=== PATIENT | female | born 1970 | race Caucasian/White ===

== ENCOUNTER 2017-10-20 05:50 | Emergency (ER) | payer OTHER ==
[2017-10-20 06:51] LABS: ADD MAN DIFF? NO
[2017-10-20 06:55] LABS: WHITE BLOOD COUNT 7.6 10^3/ul (4.8-10.8)
[2017-10-20 06:55] LABS: BASOPHIL # 0.1 10^3/ul (0.0-0.1); BASOPHILS % 0.7 % (0.0-2.0); EOSINOPHILS # 0.6 10^3/ul (0.0-0.5); EOSINOPHILS % 7.5 % (0.0-7.0); HEMOGLOBIN 13.5 g/dl (12.0-16.0); LYMPHOCYTES # 2.4 10^3/ul (0.8-2.9); LYMPHOCYTES % 31.8 % (15.0-51.0); MEAN CORPUSCULAR HEMOGLOBIN 28.4 pg (29.0-33.0); MEAN CORPUSCULAR HGB CONC 32.9 g/dl (32.0-37.0); MEAN CORPUSCULAR VOLUME 86.1 fl (82.0-101.0); MEAN PLATELET VOLUME 11.5 fl (7.4-10.4); MONOCYTE # 0.5 10^3/ul (0.3-0.9); MONOCYTES % 6.8 % (0.0-11.0); NEUTROPHILS % 52.8 % (39.0-77.0); PLATELET COUNT 244 10^3/UL (140-415); RED BLOOD COUNT 4.76 10^6/ul (4.20-5.40); RED CELL DISTRIBUTION WIDTH 11.9 % (11.5-14.5)
[2017-10-20] MEDS: ALBUTEROL 0.083% (NEB) 2.5 MG/3 ML AMP NEB (07:05)
[2017-10-20] MEDS: IPRATROPIUM (NEB) 0.5 MG/2.5 ML AMP NEB (07:06)
[2017-10-20 07:17] LABS: ANION GAP 13 (8-16); BLOOD UREA NITROGEN 14 mg/dl (7-20); CALCIUM 9.7 mg/dl (8.4-10.2); CARBON DIOXIDE 28 mmol/L (21-31); CHLORIDE 103 mmol/L (97-110); CREATININE 0.92 mg/dl (0.44-1.00); GLUCOSE 98 mg/dl (70-220); POTASSIUM 4.2 mmol/L (3.5-5.1); SODIUM 140 mmol/L (135-144)
[2017-10-20 07:33] LABS: TROPONIN-I < 0.012 ng/ml (0.00-0.12)
[2017-10-20] MEDS: KETOROLAC 30 MG INJ IV (08:02)
== END 2017-10-20 08:16 | disposition home or self-care (01) ==
LOC: E/R 05:50
DX: J45.901 Unspecified asthma with (acute) exacerbation (principal); J20.9 Acute bronchitis, unspecified; R05 Cough
CPT/HCPCS: 36415; 71045; 80048; 84484; 85025; 93005; 94664; 96374; 99285-25

== ENCOUNTER 2017-11-02 22:46 | Emergency (ER) | payer OTHER | END 2017-11-03 01:50 | disposition home or self-care (01) | LOC: FTE 22:46 | DX: J20.9 Acute bronchitis, unspecified (principal); J45.909 Unspecified asthma, uncomplicated | CPT/HCPCS: 99284; Z7502 ==

== ENCOUNTER 2018-05-29 04:30 | Inpatient (IN) | payer OTHER ==
[2018-05-29] MEDS: SOD CHLORIDE 0.9% 500 ML IV (05:31)
[2018-05-29] MEDS: ONDANSETRON 4 MG INJ IV ×3 (05:31→10:05)
[2018-05-29 05:44] LABS: ADD MAN DIFF? NO
[2018-05-29] MEDS: LIDOCAINE/MYLANTA 40 ML BTL PO (05:47)
[2018-05-29 05:55] LABS: ALANINE AMINOTRANSFERASE 32 IU/L (13-69); ALBUMIN 3.9 g/dl (3.3-4.9); ALBUMIN/GLOBULIN RATIO 1.11; ALKALINE PHOSPHATASE 81 IU/L (42-121); ANION GAP 11 (8-16); ASPARTATE AMINO TRANSFERASE 60 IU/L (15-46); BILIRUBIN,INDIRECT 0.3 mg/dl (0-1.1); BILIRUBIN,TOTAL 0.3 mg/dl (0.2-1.3); BLOOD UREA NITROGEN 14 mg/dl (7-20); CALCIUM 9.2 mg/dl (8.4-10.2); CARBON DIOXIDE 28 mmol/L (21-31); CHLORIDE 106 mmol/L (97-110); CREATININE 0.97 mg/dl (0.44-1.00); GLUCOSE 97 mg/dl (70-220); LIPASE 136 U/L (23-300); POTASSIUM 4.1 mmol/L (3.5-5.1); SODIUM 141 mmol/L (135-144); TOTAL PROTEIN 7.4 g/dl (6.1-8.1)
[2018-05-29 06:05] LABS: BASOPHILS % 0.4 % (0.0-2.0); EOSINOPHILS # 0.2 10^3/ul (0.0-0.5); EOSINOPHILS % 2.3 % (0.0-7.0); HEMATOCRIT 41.1 % (37.0-47.0); HEMOGLOBIN 13.8 g/dl (12.0-16.0); LYMPHOCYTES # 4.1 10^3/ul (0.8-2.9); LYMPHOCYTES % 42.2 % (15.0-51.0); MEAN CORPUSCULAR HEMOGLOBIN 29.2 pg (29.0-33.0); MEAN CORPUSCULAR HGB CONC 33.6 g/dl (32.0-37.0); MEAN CORPUSCULAR VOLUME 86.9 fl (82.0-101.0); MEAN PLATELET VOLUME 11.9 fl (7.4-10.4); MONOCYTE # 0.8 10^3/ul (0.3-0.9); MONOCYTES % 7.8 % (0.0-11.0); NEUTROPHIL # 4.5 10^3/ul (1.6-7.5); PLATELET COUNT 202 10^3/UL (140-415); RED BLOOD COUNT 4.73 10^6/ul (4.20-5.40); RED CELL DISTRIBUTION WIDTH 12.2 % (11.5-14.5)
[2018-05-29 06:05] LABS: WHITE BLOOD COUNT 9.6 10^3/ul (4.8-10.8)
[2018-05-29 06:06] LABS: ADD UMIC YES; TROPONIN-I < 0.012 ng/ml (0.000-0.120); UR ASCORBIC ACID NEGATIVE (NEGATIVE); UR BACTERIA FEW /HPF (NONE SEEN); UR BILIRUBIN (Dip) NEGATIVE (NEGATIVE); UR BLOOD (Dip) 2+ mg/dL (NEGATIVE); UR CLARITY CLOUDY (CLEAR); UR COLOR YELLOW (YELLOW); UR GLUCOSE (Dip) NEGATIVE (NEGATIVE); UR KETONES (Dip) NEGATIVE (NEGATIVE); UR LEUKOCYTE ESTERASE (Dip) NEGATIVE Leu/ul (NEGATIVE); UR MUCUS FEW /HPF (NONE SEEN); UR NITRITE (Dip) NEGATIVE (NEGATIVE); UR RBC 2 /HPF (0-5); UR SPECIFIC GRAVITY (Dip) 1.019 (1.003-1.030); UR SQUAMOUS EPITHELIAL CELL MODERATE /HPF (FEW); UR TOTAL PROTEIN (Dip) NEGATIVE (NEGATIVE); UR UROBILINOGEN (Dip) NEGATIVE (NEGATIVE); UR WBC 5 /HPF (0-5)
[2018-05-29] MEDS: HYDROmorphONE 0.5 MG/0.5 ML SYG IV ×2 (06:33→10:05)
[2018-05-29] MEDS ORDERED: LIDOCAINE 2% (SDV) 5 ML INJ (07:00)
[2018-05-29] MEDS ORDERED: ROPIVACAINE 0.5 % 30 ML VIAL ×2 (07:00→13:13)
[2018-05-29] MEDS: PIPER-TAZO 3.375 GM IV (PMX) 100 ML IVPB (08:00)
[2018-05-29 10:30] LABS: INR 0.85; PROTIME 11.7 Sec (11.9-14.9); PT RATIO 0.9
[2018-05-29] MEDS ORDERED: DOCUSATE SODIUM 100 MG CAP PO (12:00)
[2018-05-29] MEDS ORDERED: ACETAMINOPHEN 650 MG SUPP PR (12:00)
[2018-05-29] MEDS ORDERED: MAGNESIUM HYDROXIDE 30ML CUP PO (12:00)
[2018-05-29] MEDS ORDERED: BISACODYL 10 MG SUPP PR (12:00)
[2018-05-29] MEDS ORDERED: NACL 0.9% 3 ML SYG IV (12:00)
[2018-05-29] MEDS ORDERED: ONDANSETRON 4 MG INJ IV ×2 (12:00→14:00)
[2018-05-29] MEDS ORDERED: HYDROCODONE/APAP (5/325) TAB PO (12:00)
[2018-05-29] MEDS ORDERED: ACETAMINOPHEN 325 MG TAB PO (12:00)
[2018-05-29] MEDS ORDERED: ROCURONIUM 50 MG INJ (12:17)
[2018-05-29] MEDS ORDERED: PROPOFOL 100 ML (12:17)
[2018-05-29] MEDS ORDERED: ACETAMINOPHEN 1000MG/100ML IV 100 ML (12:18)
[2018-05-29] MEDS ORDERED: DEXAMETHASONE 4 MG/ML 1 ML INJ (12:52)
[2018-05-29] MEDS ORDERED: ONDANSETRON 4 MG INJ (12:53)
[2018-05-29] MEDS: BUPIVACAINE 0.25%/EPI (SDV) 30 ML INJ (12:54)
[2018-05-29] MEDS: LIDOCAINE 1% (MPF) 30 ML INJ (12:54)
[2018-05-29] MEDS ORDERED: SUGAMMADEX SODIUM 200 MG/2 ML VIAL IV (13:17)
[2018-05-29] MEDS ORDERED: SENNA/DOCUSATE NA (8.6MG/50MG) TAB PO (13:30)
[2018-05-29] MEDS ORDERED: KETOROLAC 30 MG INJ IV ×2 (13:30→14:00)
[2018-05-29] MEDS ORDERED: FENTAnyl 50 MCG/ML VIAL IV ×3 (14:00)
[2018-05-29] MEDS ORDERED: MIDAZOLAM 1 MG/ML 2 ML INJ IV (14:00)
[2018-05-29] MEDS ORDERED: HYDROmorphONE 1 MG/5 ML IV SYRINGE IV (14:00)
[2018-05-29] MEDS ORDERED: LABETALOL HCL 20MG INJ IV (14:00)
[2018-05-29] MEDS ORDERED: MEPERIDINE 25 MG INJ IV (14:00)
[2018-05-29] MEDS ORDERED: OXYCODONE/ACETAMINOPHEN (5/325) TAB PO ×2 (14:00)
[2018-05-29] MEDS ORDERED: hydrALAzine 20 MG INJ IV (14:00)
[2018-05-29] MEDS ORDERED: METOCLOPRAMIDE 10 MG INJ IV (14:00)
[2018-05-29] MEDS ORDERED: EPHEDrine SULFATE 50 MG/5 ML SYG IV (14:00)
[2018-05-29] MEDS ORDERED: ALBUTEROL 0.083% (NEB) 2.5 MG/3 ML AMP HHN (14:00)
[2018-05-29] MEDS ORDERED: DIPHENHYDRAMINE 50 MG INJ IV (14:00)
[2018-05-29] MEDS: HYDROmorphONE 1 MG/5 ML IV SYRINGE IV ×2 (14:01→14:19)
[2018-05-29] MEDS: SOD CHLORIDE 0.9% 1,000 ML IV ×2 (16:50→21:41)
[2018-05-29] MEDS: AMPICILLIN/SULB 3 GM/NS (PMX) 100 ML IVPB ×2 (16:51→20:11)
[2018-05-29] MEDS: morphine 2 MG INJ IV ×2 (17:43→22:09)
[2018-05-30] MEDS: AMPICILLIN/SULB 3 GM/NS (PMX) 100 ML IVPB ×2 (02:03→10:02)
[2018-05-30] MEDS: morphine 2 MG INJ IV ×2 (02:09→06:17)
[2018-05-30] MEDS: SOD CHLORIDE 0.9% 1,000 ML IV ×2 (04:45→17:41)
[2018-05-30] MEDS: PANTOPRAZOLE 40 MG INJ IV (05:29)
[2018-05-30 06:44] LABS: ADD MAN DIFF? NO
[2018-05-30 06:47] LABS: WHITE BLOOD COUNT 10.4 10^3/ul (4.8-10.8)
[2018-05-30 06:47] LABS: BASOPHILS % 0.1 % (0.0-2.0); HEMATOCRIT 37.8 % (37.0-47.0); HEMOGLOBIN 12.7 g/dl (12.0-16.0); LYMPHOCYTES # 1.6 10^3/ul (0.8-2.9); LYMPHOCYTES % 15.7 % (15.0-51.0); MEAN CORPUSCULAR HEMOGLOBIN 28.7 pg (29.0-33.0); MEAN CORPUSCULAR HGB CONC 33.6 g/dl (32.0-37.0); MEAN CORPUSCULAR VOLUME 85.3 fl (82.0-101.0); MONOCYTE # 0.6 10^3/ul (0.3-0.9); MONOCYTES % 5.7 % (0.0-11.0); NEUTROPHIL # 8.1 10^3/ul (1.6-7.5); PLATELET COUNT 179 10^3/UL (140-415); RED BLOOD COUNT 4.43 10^6/ul (4.20-5.40); RED CELL DISTRIBUTION WIDTH 12.3 % (11.5-14.5)
[2018-05-30 07:27] LABS: ALANINE AMINOTRANSFERASE 89 IU/L (13-69); ALBUMIN 3.6 g/dl (3.3-4.9); ALBUMIN/GLOBULIN RATIO 1.12; ALKALINE PHOSPHATASE 62 IU/L (42-121); ANION GAP 13 (8-16); ASPARTATE AMINO TRANSFERASE 95 IU/L (15-46); BILIRUBIN,INDIRECT 0.8 mg/dl (0-1.1); BILIRUBIN,TOTAL 0.8 mg/dl (0.2-1.3); BLOOD UREA NITROGEN 8 mg/dl (7-20); CALCIUM 9.4 mg/dl (8.4-10.2); CARBON DIOXIDE 27 mmol/L (21-31); CHLORIDE 105 mmol/L (97-110); CHOL/HDL RATIO 3.8 RATIO; CHOLESTEROL 202 mg/dl (100-200); CREATININE 0.78 mg/dl (0.44-1.00); GLUCOSE 94 mg/dl (70-220); HDL CHOLESTEROL 52 mg/dl (34-88); LDL CHOLESTEROL,CALCULATED 134 mg/dl; PHOSPHORUS 4.3 mg/dl (2.5-4.9); POTASSIUM 5.1 mmol/L (3.5-5.1); SODIUM 140 mmol/L (135-144); TOTAL PROTEIN 6.8 g/dl (6.1-8.1); TRIGLYCERIDES 82 mg/dl (0-149)
[2018-05-30 07:36] LABS: T3 UPTAKE 35.5 % (23.5-40.5); T4 (THYROXINE) 6.2 ug/dl (5.5-11.0)
[2018-05-30 07:45] LABS: HEMOGLOBIN A1C 5.3 % (0-5.9)
[2018-05-30 07:50] LABS: THYROID STIMULATING HORMONE 0.416 MIU/L (0.465-4.680)
[2018-05-30] MEDS: HYDROCODONE/APAP (5/325) TAB PO (15:43)
== END 2018-05-30 20:48 | disposition home or self-care (01) | DRG 419 ==
LOC: E/R 04:30 → PP2 10:02
PROC: 0FT44ZZ Resection of Gallbladder, Percutaneous Endoscopic Approach (ICD-10-PCS; principal; 2018-05-29 11:30)
PROC: 0FB04ZX Excision of Liver, Percutaneous Endoscopic Approach, Diagnostic (ICD-10-PCS; 2018-05-29 11:30)
DX: K80.00 Calculus of gallbladder with acute cholecystitis without obstruction (principal); K29.70 Gastritis, unspecified, without bleeding; J45.909 Unspecified asthma, uncomplicated; R74.0 Nonspecific elevation of levels of transaminase and lactic acid dehydrogenase [LDH]; E66.9 Obesity, unspecified; Z68.33 Body mass index [BMI] 33.0-33.9, adult; K76.0 Fatty (change of) liver, not elsewhere classified
CPT/HCPCS: 36415; 76705; 80053; 80061; 81001; 81025; 83036; 83690; 83735; 84100; 84436; 84443; 84479; 84484; 85025; 85610; 88304; 88307; 88313; 93005; 96374; 96375; 96376; 99285-25

== ENCOUNTER 2018-07-29 14:35 | Emergency (ER) | payer OTHER | END 2018-07-29 15:25 | disposition home or self-care (01) | LOC: FTE 14:35 | DX: J20.9 Acute bronchitis, unspecified (principal); J04.0 Acute laryngitis | CPT/HCPCS: 99283; Z7502 ==

== ENCOUNTER 2018-09-28 08:18 | Emergency (ER) | payer OTHER | END 2018-09-28 09:01 | disposition home or self-care (01) | LOC: FTE 08:18 | DX: J06.9 Acute upper respiratory infection, unspecified (principal) | CPT/HCPCS: 99283; Z7502 ==

== ENCOUNTER 2018-10-18 05:50 | Emergency (ER) | payer OTHER ==
[2018-10-18] MEDS: KETOROLAC 60 MG INJ IM (06:46)
== END 2018-10-18 06:56 | disposition home or self-care (01) ==
LOC: FTE 05:50
DX: M54.12 Radiculopathy, cervical region (principal)
CPT/HCPCS: 81025; 90472; 99284-25

== ENCOUNTER 2018-12-22 04:50 | Emergency (ER) | payer OTHER ==
[2018-12-22] MEDS: IBUPROFEN 800 MG TAB PO (05:44)
== END 2018-12-22 05:48 | disposition home or self-care (01) ==
LOC: E/R 04:50
DX: R04.0 Epistaxis (principal); N94.6 Dysmenorrhea, unspecified
CPT/HCPCS: 99282; Z7502

== ENCOUNTER 2019-02-18 16:35 | Emergency (ER) | payer OTHER ==
[2019-02-18] MEDS: DEXAMETHASONE 10 MG/ML 1 ML INJ IM (19:11)
[2019-02-18] MEDS: KETOROLAC 30 MG INJ IM (19:12)
[2019-02-18 19:13] LABS: ADD UMIC NO; UR ASCORBIC ACID NEGATIVE (NEGATIVE); UR BILIRUBIN (Dip) NEGATIVE (NEGATIVE); UR BLOOD (Dip) NEGATIVE (NEGATIVE); UR CLARITY CLEAR (CLEAR); UR COLOR YELLOW (YELLOW); UR GLUCOSE (Dip) NEGATIVE (NEGATIVE); UR KETONES (Dip) NEGATIVE (NEGATIVE); UR LEUKOCYTE ESTERASE (Dip) NEGATIVE Leu/ul (NEGATIVE); UR NITRITE (Dip) NEGATIVE (NEGATIVE); UR SPECIFIC GRAVITY (Dip) 1.023 (1.003-1.030); UR TOTAL PROTEIN (Dip) NEGATIVE (NEGATIVE); UR UROBILINOGEN (Dip) NEGATIVE (NEGATIVE)
== END 2019-02-18 20:20 | disposition home or self-care (01) ==
LOC: FTE 16:35
DX: S96.912A Strain of unspecified muscle and tendon at ankle and foot level, left foot, initial encounter (principal); S39.92XA Unspecified injury of lower back, initial encounter; X58.XXXA Exposure to other specified factors, initial encounter; Y92.9 Unspecified place or not applicable
CPT/HCPCS: 73610; 81003; 81025; 96372; 99284-25

== ENCOUNTER 2019-05-15 21:24 | Emergency (ER) | payer OTHER | END 2019-05-15 22:56 | disposition home or self-care (01) | LOC: FTE 21:24 | DX: S60.561A Insect bite (nonvenomous) of right hand, initial encounter (principal); S60.562A Insect bite (nonvenomous) of left hand, initial encounter; S80.861A Insect bite (nonvenomous), right lower leg, initial encounter; S80.862A Insect bite (nonvenomous), left lower leg, initial encounter; W57.XXXA Bitten or stung by nonvenomous insect and other nonvenomous arthropods, initial encounter; Y92.9 Unspecified place or not applicable | CPT/HCPCS: 99282 ==

== ENCOUNTER 2019-05-26 12:36 | Emergency (ER) | payer OTHER | END 2019-05-26 13:56 | disposition home or self-care (01) | LOC: FTE 13:56 | DX: S30.861A Insect bite (nonvenomous) of abdominal wall, initial encounter (principal); W57.XXXA Bitten or stung by nonvenomous insect and other nonvenomous arthropods, initial encounter; Y92.9 Unspecified place or not applicable | CPT/HCPCS: 99282; Z7502 ==

== ENCOUNTER 2019-06-04 06:05 | Emergency (ER) | payer OTHER ==
[2019-06-04] MEDS: DEXAMETHASONE 10 MG/ML 1 ML INJ IM (06:28)
== END 2019-06-04 06:38 | disposition home or self-care (01) ==
LOC: FTE 06:38
DX: R22.0 Localized swelling, mass and lump, head (principal)
CPT/HCPCS: 96372; 99284-25